=== PATIENT | male | born 1980 | race Caucasian/White ===

== ENCOUNTER 2018-04-16 15:27 | Emergency (ER) | payer OTHER ==
[2018-04-16 16:21] LABS: Bilirubin Small (Negative); Blood, Urine Negative (Negative); Clarity CLOUDY (Clear); Glucose, Urine (Dipstick) Negative (Negative); Leukocyte Negative (Negative); Nitrite Negative (Negative); Protein, Urine (Dipstick) Trace mg/dL (Neg-Trace); Specific Gravity, Urine 1.031 (1.002-1.036); pH, Urine 5.5 (5.0-9.0)
[2018-04-16] MEDS ORDERED: Pantoprazole 40 MG VIAL ONE (16:52)
[2018-04-16 17:02] LABS: #Eosinphils 0.1 thou/uL (0.0-0.7); #Lymphocytes 1.6 thou/uL (1.20-3.40); #Monocytes 0.5 thou/uL (0.11-0.59); %Basophils 0.2 % (0.0-1.0); %Eosinophils 2.6 % (0.0-10.0); %Lymphocytes 29.9 % (21.0-51.0); %Monocytes 9.3 % (0.0-10.0); Hemoglobin 15.8 g/dL (14.0-18.0); Mean Corpuscular HGB CONC 33.8 g/dL (32.0-36.0); Mean Corpuscular Hemoglobin 29.7 pg (27.0-31.0); Mean Corpuscular Volume 87.7 fL (78.0-98.0); Mean Platelet Volume 9.2 fL (7.4-10.4); Platelet Count 174 thou/uL (130-400); RBC Distribution Width 12.4 % (11.5-14.5); Red Blood Cell (RBC) Count 5.32 mill/uL (4.70-6.10); White Blood Cell (WBC) Count 5.2 thou/uL (4.8-10.8)
[2018-04-16 17:23] LABS: ALT (SGPT) 27 U/L (8-55); AST (SGOT) 17 U/L (5-34); Albumin 4.6 g/dL (3.5-5.0); Alkaline Phosphatase 72 U/L (40-150); Anion Gap 16 mmol/L (10-20); BUN (Urea Nitrogen) 13 mg/dL (8.9-20.6); Bilirubin, Total 1.2 mg/dL (0.2-1.2); Calc. Creatinine Clearance 0 mL/min (70-130); Calcium 9.3 mg/dL (7.8-10.44); Carbon Dioxide 24 mmol/L (22-29); Chloride 103 mmol/L (98-107); Estimated GFR-MDRD 65; Globulin 2.7 g/dL (2.4-3.5); Glucose 92 mg/dL (70-105); Lipase 20 U/L (8-78); Potassium 3.7 mmol/L (3.5-5.1); Protein, Total 7.3 g/dL (6.0-8.3); Sodium 139 mmol/L (136-145)
[2018-04-16] MEDS ORDERED: Sucralfate 1 GM/10 ML UDCUP ONE (17:49)
--- NOTE | 2018-04-16 19:12 | ULT ---
GALLBLADDER ULTRASOUND: 04/16/18 CLINICAL HISTORY: Right upper quadrant pain. FINDINGS: There is no acute gallbladder pathology. No focal hepatic lesion. Malloy's sign is reported as negati ve. Common duct is normal measuring 3 mm in diameter, where visualized. There is no ascites of the ri ght upper quadrant. IMPRESSION: No acute abnormalities identified by sonographic evaluation of the right upper quadrant. There is increased echogenicity of the hepatic parenchyma which can be seen in the setting of fatty i nfiltration. Correlate with liver function enzymes. POS: [facility]
== END 2018-04-16 19:30 | disposition home or self-care (01) ==
LOC: ERS 15:27
DX: K21.9 Gastro-esophageal reflux disease without esophagitis (principal); Z79.899 Other long term (current) drug therapy
CPT/HCPCS: 76705; 80053; 81003; 83690; 85025; 96361; 96374; C9113

== ENCOUNTER 2024-02-12 16:00 | Outpatient (CLI) | payer OTHER | END 2024-02-12 16:01 | disposition home or self-care (01) | LOC: SLEEPLAB 16:00 | PROVIDERS: ATTEND Family Medicine | DX: G47.33 Obstructive sleep apnea (adult) (pediatric) (principal); R53.83 Other fatigue; R06.83 Snoring; E66.9 Obesity, unspecified; Z68.38 Body mass index [BMI] 38.0-38.9, adult | CPT/HCPCS: 95800 ==